=== PATIENT | female | born 2000 | race Caucasian/White ===

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

== ENCOUNTER 2023-03-21 10:43 | Emergency (ER) | payer BC, MEDICAID ==
[~2023-03-21] VITALS: Ht 172.7 cm; Wt 80.0 kg
[2023-03-21] MEDS ORDERED: CLAR-45 PO (11:45)
[2023-03-21 12:23] VITALS: BP 108/68; PULSE 70; RESP 18; TEMP 98.9; O2SAT 97
== END 2023-03-21 12:25 | disposition home or self-care (01) ==
LOC: ER 10:44
DX: J32.9 Chronic sinusitis, unspecified (principal); J45.909 Unspecified asthma, uncomplicated; Z79.899 Other long term (current) drug therapy
CPT/HCPCS: 99283